=== PATIENT | female | born 1955 | race Hispanic/Latino ===

== ENCOUNTER 2019-01-05 08:22 | Day surgery (SDC) | payer MEDICARE ==
[2019-01-05] MEDS ORDERED: ceFAZolin 2 GM in NACL 0.9% 100 ML IV ONE (10:11)
[2019-01-05] MEDS ORDERED: ANCEF/STERILE WATER 2 GM/20 ML 2 GM/20 ML SYRINGE IV SCH (11:00)
--- NOTE | 2019-01-05 11:00 | Anesthesia Consultation ---
Anesthesia Consult and Med Hx Date of service: 01/05/19 - Airway Anesthetic Teeth Evaluation: Dentures ROM Head & Neck: Adequate Mental/Hyoid Distance: Adequate Mallampati Class: Class II Intubation Access Assessment: Good - Pulmonary Exam CTA: Yes - Cardiac Exam Cardiac Exam: RRR - Pre-Operative Health Status ASA Pre-Surgery Classification: ASA4 Proposed Anesthetic Plan: General - Pulmonary Hx Smoking: Yes (Quit 2 weeks ago) COPD: No (no formal dx but likely COPD 45 year hx of smoking) - Cardiovascular System Hx Hypertension: Yes - Central Nervous System Hx Back Pain: Yes Hx Psychiatric Problems: Yes - Endocrine Hx Non-Insulin Dependent Diabetes: Yes (took metformon this am) - Hematic Hx Anemia: Yes (Past hx) - Other Systems Hx Cancer: No Hx Obesity: Yes
--- NOTE | 2019-01-05 11:01 | Anesthesia Day of Surgery ---
Anesthesia Day of Surgery - Day of Surgery Patient Examined: Yes Patient H&P Reviewed: Yes Patient is NPO: Yes
[2019-01-05] MEDS ORDERED: PROVENTIL IH NR (11:15)
[2019-01-05] MEDS ORDERED: LACTATED RINGERS 1,000 ML IV SCH (12:00)
[2019-01-05] MEDS ORDERED: SUBLIMAZE ONE (12:05)
[2019-01-05] MEDS ORDERED: DIPRIVAN 10 MG/ML IV ONE (12:06)
[2019-01-05] MEDS ORDERED: XYLOCAINE MPF 2% ONE (13:12)
[2019-01-05] MEDS ORDERED: ZOFRAN ONE (13:12)
[2019-01-05] MEDS ORDERED: PHENYLEPHRINE/NS Syringe 1,000 MCG/10 ML IV ONE (13:12)
--- NOTE | 2019-01-05 13:51 | Operative Report ---
PREOPERATIVE DIAGNOSIS: Large left renal stone. POSTOPERATIVE DIAGNOSES: Large left renal stone. PROCEDURE: Left lithotripsy. SURGEON: Dr. Ramirez. ANESTHESIA: General. FINDINGS: This is a woman with a large left renal stone about 2 cm. There is a stent in place. She now presents for lithotripsy. DESCRIPTION OF PROCEDURE: The patient was brought to lithotripsy room and placed on the table. Stone was localized with AP and oblique image. It was quite dense on the initial film and during the procedure, density significantly diminished. We had a renal pause. We started at 1 kV, increased to a maximum of 8 kV. 2500 shocks were given. The patient tolerated the procedure well and brought to recovery in stable condition. JOB# [id number] YESSY/CASTILLO
--- NOTE | 2019-01-05 14:23 | Post Operative Note ---
Date of procedure: 01/05/19 Pre-op diagnosis: renal stone Post-op diagnosis: same Findings: same Procedure: ESWL Anesthesia: GETAna Surgeon: VIOLET MIGUEL Estimated blood loss: none Pathology: none Condition: stable Disposition: PACU
--- NOTE | 2019-01-05 14:25 | Discharge Summary ---
Short Stay Discharge Plan Activity: other (no straining ) Diet: low fat, low cholesterol, low salt Special Instructions: other (inc fluids ) Durable Medical Equipment Needed Upon Discharge: other (j stent ) Follow up with: ANGEL DAVIS DO [Primary Care Provider] - 7 Days JACEY SOSA MD [Staff Physician] - 7 Days
[2019-01-06 01:56] VITALS: BP 130/79
--- NOTE | 2019-01-06 10:08 | Post Anesthesia Evaluation ---
- Post Anesthesia Evaluation Patient Participated: Yes Airway Patent: Yes Stable Respiratory Function: Yes Nausea/Vomiting: No Temp > 96.8F: Yes Pain Manageable: Yes Adequeate Hydration: Yes Anesthesia Complications: No Block Receding Appropriately: Not Applicable Patient on Ventilator: No
== END 2019-01-05 15:40 | disposition home or self-care (01) ==
LOC: OR 08:22
PROVIDERS: ATTEND Urology
DX: N20.1 Calculus of ureter (principal); E11.42 Type 2 diabetes mellitus with diabetic polyneuropathy; I10 Essential (primary) hypertension; E66.9 Obesity, unspecified; F32.9 Major depressive disorder, single episode, unspecified; F41.9 Anxiety disorder, unspecified; D64.9 Anemia, unspecified; Z79.899 Other long term (current) drug therapy; Z79.84 Long term (current) use of oral hypoglycemic drugs; Z87.891 Personal history of nicotine dependence; Z98.41 Cataract extraction status, right eye; Z98.42 Cataract extraction status, left eye; Z68.39 Body mass index [BMI] 39.0-39.9, adult; Z90.710 Acquired absence of both cervix and uterus; Z96.612 Presence of left artificial shoulder joint
CPT/HCPCS: 50590; 82962; J0690; J2370; J2405; J2704; J3010; J7120

== ENCOUNTER 2019-02-20 05:57 | Day surgery (SDC) | payer MEDICARE ==
[2019-02-20] MEDS ORDERED: NACL 0.9% 500 ML 500 ML IV SCH (07:00)
[2019-02-20 07:18] LABS: Eosinophils # (Auto) 0.2 K/mm3 (0.0-0.4); Eosinophils % (Auto) 5.6 % (0.0-4.3); Hematocrit 41.6 % (30.3-42.9); Hemoglobin 14.4 gm/dl (10.1-14.3); Lymphocytes # (Auto) 1.1 K/mm3 (1.2-5.4); Lymphocytes % (Auto) 24.9 % (13.4-35.0); Mean Corpuscular HGB Conc 35 % (30-34); Mean Corpuscular Volume 97 fl (79-97); Monocytes # (Auto) 0.5 K/mm3 (0.0-0.8); Monocytes % (Auto) 11.7 % (0.0-7.3); Platelet Count 101 K/mm3 (140-440); Red Blood Count 4.31 M/mm3 (3.65-5.03)
[2019-02-20 07:19] VITALS: BP 108/55
[2019-02-20 07:31] LABS: BUN/Creatinine Ratio 18; Blood Urea Nitrogen 14 mg/dL (7-17); Calcium 9.7 mg/dL (8.4-10.2); Hemolysis Index 65
[2019-02-20 07:32] LABS: INR 1.02 (0.87-1.13)
[2019-02-20 07:33] LABS: Partial Thromboplastin Time 30.2 Sec. (24.2-36.6)
--- NOTE | 2019-02-20 08:23 | Cat Scan Report ---
CT ABDOMEN AND PELVIS WITHOUT CONTRAST HISTORY: renal stones, for PCNL, do once at [facility] COMPARISON: None. TECHNIQUE: Axial CT images were obtained through the abdomen and pelvis without IV contrast. Sagittal and coronal reformatted images. All CT scans at this location are performed using CT dose reduction for ALARA by means of automated exposure control. FINDINGS: CT ABDOMEN: Lung Bases: Clear. Liver: The liver is cirrhotic with surface nodularity and hypertrophy of the left hepatic lobe. No ob vious liver mass on noncontrast CT. Biliary: A few tiny calcified gallstones are noted in the gallbladder fundus. No biliary dilatation o r inflammation. Spleen: Moderate splenomegaly measures 15-16 cm in length. Pancreas: No significant abnormality. Adrenals: There are bilateral small hypodense adrenal lesions consistent with adrenal adenomas. Kidneys: A left ureteral stent spans from the left renal pelvis to the bladder. Approximately 6 or 7 left renal stones are identified. The largest stones at the inferior pole of the left kidney measurin g up to 1.5 cm in greatest dimension. An approximate 6 mm proximal left ureteral stone is identified along the stent at the level of L4. The left kidney and collecting system are unremarkable. No eviden ce for renal cystic disease or obvious mass. No hydronephrosis. Lymphatics: No lymphadenopathy. Vasculature: Moderate diffuse aortic and iliac calcifications. No aneurysm. Bowel/Peritoneum: No significant abnormality. No free air. No free fluid. Normal appendix. CT PELVIS: : Hysterectomy changes are suspected. No adnexal cyst or mass. The bladder is unremarkable. Osseous Structures: Mild osteopenia with multilevel thoracolumbar spondylosis. No fracture or suspici ous bony lesion. Chronic healed trauma to the left pubic bone is suspected. Additional Findings: Small umbilical hernia containing fat measuring less than 1.5 cm IMPRESSION: Left nephrolithiasis as described above. Cirrhosis of the liver and moderate splenomegaly. No ascites or large varices identified. Bilateral adrenal adenomas. Tiny gallstones. Small umbilical hernia containing fat. Osteopenia and degenerative changes. Signer Name: Angel Shepard Jr, MD Signed: 02/20/2019 8:19 AM Workstation Name: [id number]
[2019-02-20] MEDS ORDERED: VERSED ONE (08:25)
[2019-02-20] MEDS ORDERED: SUBLIMAZE ONE (08:26)
[2019-02-20] MEDS ORDERED: NACL 0.9% 0 ML IR ONE (08:26)
[2019-02-20] MEDS ORDERED: XYLOCAINE 1%/ EPI 1:100,000 INFILTRATI ONE (08:27)
[2019-02-20] MEDS ORDERED: LEVAQUIN 500MG/100ML 500 MG/100 ML BAG IV NR (09:00)
--- NOTE | 2019-02-20 09:19 | Short Stay Summary ---
Short Stay Documentation Date of service: 02/20/19 Narrative H&P: 63 year old female with left renal calculi with indwelling JJ stent/ureteral stent who presents for PCN for PCNL. Patient had incidental thrombocytopenia and CT scan showed renal calculi and cirrhosis with splenomegaly. Discussed with patient who has never had GI workup or even knew she had liver disease. Discussed with urologist who requested we cancel the case for now until patient has full GI workup. - History Principal diagnosis: renal calculi and cirrhosis Past Medical History: diabetes, liver disease, other (renal stones) Past Surgical History: Other (renal lithotripsy and JJ stent) Social history: no significant social history - Allergies and Medications Current Medications: Allergies No Known Allergies Allergy (Unverified 01/04/19 17:29) Home Medications Medication Instructions Recorded Confirmed Last Taken Type Lisinopril [Zestril TAB] 20 mg PO DAILY 01/05/19 02/20/19 02/20/19 05:00 History 20 mg Gabapentin [Neurontin] 300 mg PO TID 02/20/19 02/20/19 02/20/19 05:00 History 300 mg Haloperidol [Haldol] 2 mg PO HS 02/20/19 02/20/19 02/19/19 History 2 mg Metformin HCl [metFORMIN] 1,000 mg PO DAILY 02/20/19 02/20/19 02/18/19 History 1000 mg Metoprolol [Lopressor TAB] 200 mg PO BID 02/20/19 02/20/19 02/20/19 05:00 History 200 mg Venlafaxine HCl [Venlafaxine HCl 150 mg PO DAILY 02/20/19 02/20/19 02/20/19 05:00 History ER] 150 mg traZODone [Desyrel] 100 mg PO DAILY 02/20/19 02/20/19 02/19/19 History 100 mg Active Medications Sodium Chloride (Nacl 0.9% 500 Ml) 500 mls @ 50 mls/hr IV DIRECT KIMBERLEY Last Admin: 02/20/19 08:04 Dose: 50 mls/hr Documented by: Levofloxacin/Dextrose (Levaquin 500mg/100ml) 500 mg in 100 mls @ 100 mls/hr IV PREOP NR; Protocol Stop: 02/20/19 09:59 Last Admin: 02/20/19 08:29 Dose: 100 mls/hr Documented by: - Physical exam General appearance: no acute distress, obese Lungs: Normal air movement Heart: Regular rate - Hospital course Hospital course: Once CT findings reviewed, patient's procedure was cancelled after discussion with urologist. - Disposition Condition at discharge: Stable Disposition: [id number] HOME UNDER HOME HLTH - Discharge Diagnoses (1) Renal calculi Status: Chronic (2) Cirrhosis of liver Status: Chronic Short Stay Discharge Plan Activity: advance as tolerated Weight Bearing Status: Weight Bear as Tolerated Diet: diabetic Special Instructions: other (followup with Dr. Martinez of urology and followup with [facility] ([facility])) Follow up with: ANGEL DAVIS DO [Primary Care Provider] - 7 Days
== END 2019-02-20 10:50 | disposition home health service (06) ==
LOC: CATHLABREC 05:57
PROVIDERS: ATTEND Radiology Diagnostic Radiology
DX: N20.0 Calculus of kidney (principal); R16.1 Splenomegaly, not elsewhere classified; M85.88 Other specified disorders of bone density and structure, other site; M47.895 Other spondylosis, thoracolumbar region; I70.0 Atherosclerosis of aorta; K42.9 Umbilical hernia without obstruction or gangrene; K74.60 Unspecified cirrhosis of liver; K80.20 Calculus of gallbladder without cholecystitis without obstruction; G62.9 Polyneuropathy, unspecified; I10 Essential (primary) hypertension; J44.9 Chronic obstructive pulmonary disease, unspecified; E66.9 Obesity, unspecified; M19.90 Unspecified osteoarthritis, unspecified site; E11.42 Type 2 diabetes mellitus with diabetic polyneuropathy; F32.9 Major depressive disorder, single episode, unspecified; F41.9 Anxiety disorder, unspecified; Z53.8 Procedure and treatment not carried out for other reasons; Z90.710 Acquired absence of both cervix and uterus; Z79.899 Other long term (current) drug therapy; Z79.84 Long term (current) use of oral hypoglycemic drugs; Z98.41 Cataract extraction status, right eye; Z98.42 Cataract extraction status, left eye; Z68.41 Body mass index [BMI] 40.0-44.9, adult; Z98.890 Other specified postprocedural states; Z96.612 Presence of left artificial shoulder joint; Z86.2 Personal history of diseases of the blood and blood-forming organs and certain disorders involving the immune mechanism; Z82.49 Family history of ischemic heart disease and other diseases of the circulatory system
CPT/HCPCS: 36415; 74176; 80048; 85025; 85610; 85730; 96365; J1956; J7040; J2250; J3010

== ENCOUNTER 2019-04-17 06:19 | Inpatient (IN) | payer MEDICARE ==
[2019-04-17 07:45] LABS: Basophils % (Auto) 0.7 % (0.0-1.8); Eosinophils # (Auto) 0.2 K/mm3 (0.0-0.4); Eosinophils % (Auto) 5.9 % (0.0-4.3); Hematocrit 41.2 % (30.3-42.9); Hemoglobin 14.3 gm/dl (10.1-14.3); Lymphocytes # (Auto) 1.1 K/mm3 (1.2-5.4); Lymphocytes % (Auto) 27.8 % (13.4-35.0); Mean Corpuscular HGB Conc 35 % (30-34); Mean Corpuscular Volume 95 fl (79-97); Monocytes # (Auto) 0.5 K/mm3 (0.0-0.8); Monocytes % (Auto) 12.4 % (0.0-7.3); Platelet Count 101 K/mm3 (140-440); Red Blood Count 4.35 M/mm3 (3.65-5.03); Red Cell Distribution Width 13.7 % (13.2-15.2)
[2019-04-17 07:50] LABS: INR 1.04 (0.87-1.13)
[2019-04-17 07:51] LABS: Partial Thromboplastin Time 31.2 Sec. (24.2-36.6)
[2019-04-17 07:52] LABS: BUN/Creatinine Ratio 21; Blood Urea Nitrogen 19 mg/dL (7-17); Hemolysis Index 1
[2019-04-17] MEDS: SODIUM CHLORIDE 0.9% 500 ML 500 ML IV SCH ×2 (08:29→17:58)
--- NOTE | 2019-04-17 08:54 | Cat Scan Report ---
CT ABDOMEN AND PELVIS WITHOUT CONTRAST HISTORY: Renal calculi COMPARISON: 02/20/2019 TECHNIQUE: Axial CT images were obtained through the abdomen and pelvis without IV contrast. Sagittal and coronal reformatted images. All CT scans at this location are performed using CT dose reduction for ALARA by means of automated exposure control. FINDINGS: CT ABDOMEN: Lung Bases: Clear. Liver: Moderate cirrhotic changes are noted in the liver. No obvious mass on noncontrast CT. Biliary: No significant abnormality. Spleen: Mild to moderate splenomegaly measuring 15 cm. Pancreas: No significant abnormality. Adrenals: 1 cm low-density left adrenal nodule probably represents an adenoma. The right adrenal glan d is within normal limits. Kidneys: Normal right kidney and collecting system. There are at least 4 calyceal stones in the infer ior left kidney measuring 7 mm, 11 mm, 4 mm and 12 mm superiorly to inferiorly. No associated hydrone phrosis. A left ureteral stent extends from the left renal pelvis to the bladder. No ureteral stones are appreciated. Lymphatics: No lymphadenopathy. Vasculature: Mild aortic and iliac calcifications. No aneurysm. Bowel/Peritoneum: No significant abnormality. No free air. No free fluid. Normal appendix. CT PELVIS: : Hysterectomy changes. The bladder and adnexa are unremarkable. Osseous Structures: Osteopenia and lumbar spondylosis. Chronic left pubic bone fracture is suspected. Additional Findings: None IMPRESSION: Left nephrolithiasis as described above. Cirrhosis and splenomegaly. Hysterectomy. Left adrenal adenoma. Signer Name: Angel Shepard Jr, MD Signed: 04/17/2019 8:49 AM Workstation Name: [id number]
[2019-04-17] MEDS ORDERED: SODIUM CHLORIDE IRRI 500 ML 500 ML IR ONE (09:10)
[2019-04-17] MEDS ORDERED: SODIUM CHLORIDE 0.9% 250ML 0 ML ONE (09:11)
[2019-04-17] MEDS ORDERED: ceFAZolin/Water 2 GM/20 ML 2 GM/20 ML SYRINGE IV ONE (09:35)
[2019-04-17] MEDS: LIDOCAINE 1%/EPINEPHRINE 1:100,000 VIAL (20 ML) INFILTRATI ONE ×2 (09:48→10:18)
[2019-04-17] MEDS: MIDAZOLAM 2 MG/2 ML INJ ONE ×4 (09:48→10:17)
[2019-04-17] MEDS: fentaNYL 100 MCG/2 ML INJ ONE ×4 (09:48→10:17)
[2019-04-17] MEDS ORDERED: LIDOCAINE 1%/EPINEPHRINE 1:100,000 VIAL (20 ML) INFILTRATI ONE (10:07)
--- NOTE | 2019-04-17 10:35 | Short Stay Summary ---
Short Stay Documentation Date of service: 04/17/19 Narrative H&P: 63 year old female with cirrhosis who presents for PCNL. She needs left nephroureteral stone access and is presenting for nephroureteral tube placement and subsequently admission. - History Principal diagnosis: renal calculi Past Medical History: diabetes, liver disease, other (renal stones) Social history: - Allergies and Medications Current Medications: Allergies No Known Allergies Allergy (Unverified 01/04/19 17:29) Home Medications Medication Instructions Recorded Confirmed Last Taken Type Lisinopril [Zestril TAB] 20 mg PO DAILY 01/05/19 04/17/19 04/17/19 04:30 History 20 mg Gabapentin 300 mg PO TID 02/20/19 04/17/19 04/17/19 04:30 History 300 mg Haloperidol [Haldol] 2 mg PO HS 02/20/19 04/17/19 04/16/19 History 2 mg Metformin HCl [metFORMIN] 1,000 mg PO DAILY 02/20/19 04/17/19 04/16/19 History 1000 mg Metoprolol [Lopressor TAB] 200 mg PO BID 02/20/19 04/17/19 04/17/19 04:30 History 200 mg Venlafaxine HCl [Venlafaxine HCl 150 mg PO DAILY 02/20/19 04/17/19 04/17/19 04:30 History ER] 150 mg traZODone [Desyrel] 100 mg PO HS 02/20/19 04/17/19 04/16/19 History 100 mg cefUROXime [Ceftin] 500 mg PO BID 04/17/19 04/17/19 04/17/19 History 500 mg Active Medications Sodium Chloride (Nacl 0.9% 500 Ml) 500 mls @ 50 mls/hr IV DIRECT KIMBERLEY Last Admin: 04/17/19 08:29 Dose: 50 mls/hr Documented by: Sodium Chloride (Sodium Chloride Flush Syringe 10 Ml) 10 ml IV PRN PRN PRN Reason: LINE FLUSH - Physical exam General appearance: no acute distress, obese Lungs: Normal air movement Gastrointestinal: normal - Brief post op/procedure progress note Date of procedure: 04/17/19 Pre-op diagnosis: Renal calculi Post-op diagnosis: same Procedure: 1. Fluoroscopic guided access of the left lower pole posterioinferior calyx with stones 2. Fluoroscopic guided placement of a 6 Fr nephroureteral tube placement Anesthesia: local (w/ conscious sedation) Surgeon: JENNY HURST Estimated blood loss: minimal Condition: stable - Hospital course Hospital course: Will need to be admitted for procedure tomorrow. Discussed with hospitalist service. Will be admitted. - Discharge Diagnoses (1) Cirrhosis of liver Status: Chronic (2) Renal calculi Status: Chronic Short Stay Discharge Plan Follow up with: ANGEL DAVIS DO [Primary Care Provider] - 7 Days
--- NOTE | 2019-04-17 10:56 | Operative Report ---
Operative Report Operative Report: EXAM: 1. Fluoroscopic guided access of the lower posterioinferior calyx of the left kidney 2. Nephrostogram of the left kidney 3. Percutaneous 6 Fr left nephroureteral tube placement of the left kidney DATE: 04/17/19 CONFIGURATION ANALYST: JENNY HURST MD INDICATION: Left renal calculi requiring PCNL MEDICATIONS: Please see nursing report for full details. DEVICES: 6 [place] nephro-ureteral tube CONTRAST: 15 mL of nonionic contrast PROCEDURE: The risks, benefits, and alternatives were discussed with the patient; written informed consent was obtained. The patient's back was prepped and draped in a sterile fashion. The patient's puncture site was anesthetized with lidocaine. Under direct fluoroscopic guidance, the left lower pole posteroinferior calyx with calculi was accessed with a 21-gauge needle. 0.018 inch wire was passed into the collecting system. Needle was exchanged for a 6 [place] Accu stick system. 6 [place] Accustick system was advanced over the wire and passed into the collecting system. Wire, inner dilator and cannula were removed. Contrast was injected confirming position within the collecting system. Nephrostogram was performed demonstrating calculi within the collecting system predominately in the accessed calyx and the central portion of the collecting system without hydronephrosis. There was a double-J stent noted. No spontaneous flow of urine noted into the bladder, but there was flow through the stent. Wire and catheter were then negotiated through the 6 [place] accustick system and into the bladder. Chest was injected in the bladder documenting position in the bladder 0.035 inch Amplatz wire was advanced through the transitional dilator of the Acc uStick system and the dilator and catheter were removed. 6 [place] pigtail was positioned in the bladder over the wire traversing the collecting system. Contrast was injected into the nephrostomy tube confirming position within the bladder. The nephroureteral tube was sutured in place with Ethilon. Sterile dressing applied. Patient tolerated the procedure well. She was transferred to the floor in stable condition. FINDINGS: Please see procedure note above. IMPRESSION: 1. Successful nephrostogram of the left kidney demonstrating multiple large renal calculi without hydronephrosis with a double-J stent placement. 2. Percutaneous nephroureteral tube placement in the lower posterioinferior calyx of the left kidney.
--- NOTE | 2019-04-17 10:57 | Event Note ---
Date: 04/17/19 Patient will be admitted to the hospital. Discussed with hospitalist service. Dr. Maldonado will be performing PCNL tomorrow. Recommend Levaquin daily until procedure performed. Afterwards, recommend following urology recommendations. Recommend nothing by mouth after midnight except meds.
[2019-04-17] MEDS ORDERED: ALBUTEROL 2.5 MG/3 ML NEBU IH PRN (11:18)
--- NOTE | 2019-04-17 11:27 | History and Physical Report ---
History of Present Illness Date of examination: 04/17/19 Date of admission: 04/17/19 Chief complaint: Left flank pain History of present illness: Patient is 63 yo with hypertension, diabetes, cirrhosis, kidney stones. She had lithotripsy attempted few weeks ago but states still has some stones present. She presented to Dr. Sigala, had procedure done in OR today. She had percutanous nephroureteral tube placement left kidney and is being admitted for further management and further procedure (PCNL) to be done tomorrow by Dr. Maldonado, Urologist. Currently complains of pain left flank. No fever. Past History Past Medical History: diabetes, liver disease, other (renal stones) Past Surgical History: hysterectomy, hernia repair (umbilical), Other (rectal prolapse, left shoulder surgery) Social history: , lives with family, full code. denies: smoking, alcohol abuse Family history: diabetes, hypertension Medications and Allergies Allergies Allergy/AdvReac Type Severity Reaction Status Date / Time No Known Allergies Allergy Unverified 01/04/19 17:29 Home Medications Medication Instructions Recorded Confirmed Last Taken Type Lisinopril [Zestril TAB] 20 mg PO DAILY 01/05/19 04/17/19 04/17/19 04:30 History 20 mg Gabapentin 300 mg PO TID 02/20/19 04/17/19 04/17/19 04:30 History 300 mg Haloperidol [Haldol] 2 mg PO HS 02/20/19 04/17/19 04/16/19 History 2 mg Metformin HCl [metFORMIN] 1,000 mg PO DAILY 02/20/19 04/17/19 04/16/19 History 1000 mg Metoprolol [Lopressor TAB] 200 mg PO BID 02/20/19 04/17/19 04/17/19 04:30 His tory 200 mg Venlafaxine HCl [Venlafaxine HCl 150 mg PO DAILY 02/20/19 04/17/19 04/17/19 04:3 0 History ER] 150 mg traZODone [Desyrel] 100 mg PO HS 02/20/19 04/17/19 04/16/19 History 100 mg cefUROXime [Ceftin] 500 mg PO BID 04/17/19 04/17/19 04/17/19 History 500 mg Active Meds: Active Medications Acetaminophen (Tylenol) 650 mg PO Q4H PRN PRN Reason: Pain MILD(1-3)/Fever >100.5/RUDOLPH Albuterol (Proventil) 2.5 mg IH Q4HRT PRN PRN Reason: Shortness Of Breath Gabapentin (Gabapentin) 300 mg PO TID KIMBERLEY Haloperidol (Haldol) 2 mg PO HS KIMBERLEY Sodium Chloride (Nacl 0.9% 500 Ml) 500 mls @ 50 mls/hr IV DIRECT KIMBERLEY Last Admin: 04/17/19 08:29 Dose: 50 mls/hr Documented by: Lisinopril (Zestril) 20 mg PO DAILY KIMBERLEY Metoprolol Tartrate (Metoprolol) 200 mg PO BID KIMBERLEY Miscellaneous Medication (Venlafaxine Hcl [Venlafaxine Hcl Er]) 150 mg PO DAILY KIMBERLEY Morphine Sulfate (Morphine) 2 mg IV Q4H PRN PRN Reason: Pain, Moderate (4-6) Ondansetron HCl (Zofran) 4 mg IV Q8H PRN PRN Reason: Nausea And Vomiting Sodium Chloride (Sodium Chloride Flush Syringe 10 Ml) 10 ml IV BID KIMBERLEY Sodium Chloride (Sodium Chloride Flush Syringe 10 Ml) 10 ml IV PRN PRN PRN Reason: LINE FLUSH Trazodone HCl (Desyrel) 100 mg PO HS KIMBERLEY Review of Systems All systems: negative (No headache, no fever, no abd pain, no cough. All other systems reviewed and are negative) Exam - Physical Exam Narrative exam: Gen: Not in acute distress, lying in bed HEENT: Normocephalic, atraumatic Neck: supple, no JVD Heart: S1 and S2 reg, no murmurs, rubs or gallop Lungs: Clear to auscultation bilaterally, Abd: soft, non tender, non distended, normal BS, Nephrostomy tube left flank posteriorly, covered with dressing. Ext: No edema, no clubbing, no cyanosis Neuro: Awake, alert, oriented X 3, No focal neurological signs - Constitutional Vitals: Temp Pulse Resp BP Pulse Ox 97.8 F 76 15 125/72 93 04/17/19 10:48 04/17/19 11:15 04/17/19 11:15 04/17/19 11:00 04/17/19 11:15 Results - Labs CBC & Chem 7: 04/17/19 07:29 04/17/19 07:29 Labs: Abnormal lab results 04/17/19 04/17/19 Range/Units 07:29 07:29 WBC 4.0 L (4.5-11.0) K/mm3 MCH 33 H (28-32) pg MCHC 35 H (30-34) % Plt Count 101 L (140-440) K/mm3 [place] % (Auto) 12.4 H (0.0-7.3) % Eos % (Auto) 5.9 H (0.0-4.3) % Lymph # 1.1 L (1.2-5.4) K/mm3 Carbon Dioxide 21 L (22-30) mmol/L BUN 19 H (7-17) mg/dL Glucose 142 H (65-100) mg/dL Assessment and Plan Left renal stones s/pFluoroscopic guided access of the lower posterioinferior calyx of the left kidney, Nephrostogram of the left kidney, and percutaneous 6 Fr left nephroureteral tube placement of the left kidney by Dr. Sigala today 04/17/19 Check UA, Urinalysis Discussed with Dr. Sigala and he recommends starting Levaquin iv Hypertension Resume home meds Diabetes mellitus type 2 Fingerstick qac and hs hold metformin History of cirrhosis Obesity I counseled her on diet and exercise Full code status
[2019-04-17] MEDS ORDERED: NON-FORMULARY EACH (Venlafaxine Hcl [Venlafaxine Hcl Er] 150 MG) PO SCH (11:30)
[2019-04-17] MEDS ORDERED: ONDANSETRON 4 MG/2 ML INJ IV PRN (11:30)
[2019-04-17] MEDS ORDERED: ACETAMINOPHEN 325 MG TAB PO PRN (11:30)
[2019-04-17] MEDS ORDERED: METOPROLOL TARTRATE 100 MG TAB PO SCH (12:00)
[2019-04-17] MEDS: oxyCODONE 5 MG TAB PO PRN (12:21)
[2019-04-17] MEDS ORDERED: oxyCODONE 5 MG TAB ONE (13:17)
[2019-04-17] MEDS: MORPHINE 2 MG/1 ML INJ IV PRN ×3 (13:39→22:48)
[2019-04-17] MEDS: GABAPENTIN 300 MG CAP PO SCH ×2 (13:43→21:29)
[2019-04-17] MEDS ORDERED: VENLAFAXINE 75 MG TAB PO SCH (14:00)
[2019-04-17 14:41] LABS: INR 1.08 (0.87-1.13)
[2019-04-17] MEDS: GENTAMICIN/NS 100 MG/100 ML 100 MG/100 ML BAG IV SCH ×2 (15:29→22:36)
[2019-04-17 19:53] LABS: Bacteria,Urine 3+ /HPF (Negative); Bilirubin,Urine NEG (Negative); Blood,Urine LG (Negative); Color,Urine Yellow (Yellow); Urobilinogen,Urine < 2.0 mg/dL (<2.0)
[2019-04-17 19:54] LABS: WBC,Urine > 182.0 /HPF (0.0-6.0)
[2019-04-17] MEDS: traZODone 100 MG TAB PO SCH (22:29)
[2019-04-17] MEDS: HALOPERIDOL 2 MG TAB PO SCH (22:36)
[2019-04-17] MEDS: METOPROLOL TARTRATE 100 MG TAB PO SCH (23:51)
[2019-04-18] MEDS: MORPHINE 2 MG/1 ML INJ IV PRN ×4 (03:00→17:35)
[2019-04-18] MEDS: oxyCODONE 5 MG TAB PO PRN ×2 (05:42→22:26)
[2019-04-18] MEDS ORDERED: D5W/0.9% NACL 1,000 ML IV SCH (06:00)
[2019-04-18] MEDS: GENTAMICIN/NS 100 MG/100 ML 100 MG/100 ML BAG IV SCH ×3 (06:01→22:36)
[2019-04-18] MEDS: GABAPENTIN 300 MG CAP PO SCH ×3 (12:35→22:27)
[2019-04-18] MEDS: LISINOPRIL 20 MG TAB PO SCH (12:35)
[2019-04-18] MEDS: VENLAFAXINE 75 MG TAB PO SCH (12:36)
[2019-04-18] MEDS: METOPROLOL TARTRATE 100 MG TAB PO SCH ×2 (12:37→22:27)
[2019-04-18] MEDS ORDERED: HYDROmorphone 1 MG/1 ML INJ IV PRN (14:28)
[2019-04-18] MEDS ORDERED: ONDANSETRON 4 MG/2 ML INJ IV PRN (14:28)
--- NOTE | 2019-04-18 14:30 | Anesthesia Day of Surgery ---
Anesthesia Day of Surgery - Day of Surgery Patient Examined: Yes Patient H&P Reviewed: Yes Patient is NPO: Yes
--- NOTE | 2019-04-18 14:34 | Anesthesia Consultation ---
Anesthesia Consult and Med Hx Date of service: 04/18/19 - Airway Anesthetic Teeth Evaluation: Dentures, Edentulous (Upper) ROM Head & Neck: Adequate Mental/Hyoid Distance: Adequate Mallampati Class: Class II Intubation Access Assessment: Probably Good - Pre-Operative Health Status ASA Pre-Surgery Classification: ASA3 Proposed Anesthetic Plan: General - Pulmonary Hx Smoking: Yes (Quit. States she can climb two flights of stairs) COPD: No (no formal dx but likely COPD 45 year hx of smoking) - Cardiovascular System Hx Hypertension: Yes - Central Nervous System Hx Back Pain: Yes Hx Psychiatric Problems: Yes - Endocrine Hx Renal Disease: Yes (Stones) Hx Cirrhosis: Yes Hx Non-Insulin Dependent Diabetes: Yes - Hematic Hx Anemia: Yes (THROMBOCYTOPENIA. Anemia in the past) - Other Systems Hx Cancer: No Hx Obesity: Yes
--- NOTE | 2019-04-18 14:56 | XRay Report ---
ABDOMEN SUPINE INDICATION / CLINICAL INFORMATION: stone / surgery pre op. COMPARISON: Abdominal CT done yesterday FINDINGS: Left ureteral stents in position. Multiple left renal calculi are again demonstrated. Signer Name: Jez Campa MD Signed: 04/18/2019 2:52 PM Workstation Name: [id number]
[2019-04-18 15:01] LABS: Basophils % (Auto) 0.3 % (0.0-1.8); Eosinophils # (Auto) 0.2 K/mm3 (0.0-0.4); Eosinophils % (Auto) 3.9 % (0.0-4.3); Hematocrit 42.7 % (30.3-42.9); Hemoglobin 14.6 gm/dl (10.1-14.3); Lymphocytes % (Auto) 17.2 % (13.4-35.0); Mean Corpuscular HGB Conc 34 % (30-34); Mean Corpuscular Volume 96 fl (79-97); Monocytes # (Auto) 0.9 K/mm3 (0.0-0.8); Monocytes % (Auto) 14.7 % (0.0-7.3); Red Blood Count 4.47 M/mm3 (3.65-5.03); Red Cell Distribution Width 13.9 % (13.2-15.2)
[2019-04-18] MEDS: LACTATED RINGERS 1,000 ML IV SCH (15:03)
[2019-04-18 18:06] LABS: Platelet Count 78 K/mm3 (140-440)
--- NOTE | 2019-04-18 21:21 | Progress Note ---
Assessment and Plan - Left renal stone guided s/p Fluoroscopic inspection of left nephrostomy tube - 04/17/19 - UTI Follow urine culture Continue with Levaquin - Hypertension Resume home meds - Diabetes mellitus type 2 sliding scale insulin Fingerstick qac and hs Consistent, carbohydrates diet when patient, his oral intake - History of cirrhosis Stable Obesity counseled her on diet and exercise Full code status -DVT prophylaxis with Lovenox Subjective Date of service: 04/18/19 Principal diagnosis: left renal calculi Interval history: Postop pain improved. No fever. Objective - Exam Narrative Exam: Constitutional: Well-nourished well-developed. In no distress Head: Normocephalic atraumatic Eyes: Pupils are equal round and reactive to light Nose: No enlarged turbinates, no septal deviation. Mouth: Moist mucous membranes. Neck: Supple no thyromegaly. No bruit. No JVD Heart: Regular rate and rhythm, S1-S2 normal. No rubs murmurs or gallop Lungs: Clear to auscultation bilaterally. no rales or rhonchi Abdomen: Soft, nontender. Bowel sound are present. Extremities: No edema, no cyanosis, no clubbing. Neuro: Alert oriented Oriented x3. No focal sensory or motor deficit. Skin: No rashes or hyperpigmented spots Musculoskeletal system: No joint pain or swelling Hematological: No petechia or subcutanous hemorrhages. Immunological: No multiple septic spots on the skin Lymphatic: No generalized lymphadenopathy Psychiatry: Euthymic. Calm. - Constitutional Vitals: Vital Signs - 12hr 04/18/19 04/18/19 04/18/19 11:29 17:27 19:18 Temperature 98.1 F 99.6 F 99.0 F Pulse Rate 75 87 87 Respiratory 20 20 17 Rate Blood Pressure 98/46 127/69 129/55 O2 Sat by Pulse 93 87 90 Oximetry - Labs CBC & Chem 7: 04/18/19 14:45 04/17/19 07:29 Labs: Abnormal lab results 04/18/19 04/18/19 04/18/19 Range/Units 07:27 11:41 14:45 Hgb 14.6 H (10.1-14.3) gm/dl MCH 33 H (28-32) pg Plt Count 78 L (140-440) K/mm3 [place] % (Auto) 14.7 H (0.0-7.3) % Lymph # 1.0 L (1.2-5.4) K/mm3 [place] # 0.9 H (0.0-0.8) K/mm3 POC Glucose 153 H 126 H (70-105) 04/18/19 04/18/19 Range/Units 17:38 19:26 Hgb (10.1-14.3) gm/dl MCH (28-32) pg Plt Count (140-440) K/mm3 [place] % (Auto) (0.0-7.3) % Lymph # (1.2-5.4) K/mm3 [place] # (0.0-0.8) K/mm3 POC Glucose 133 H 132 H (70-105)
[2019-04-18] MEDS ORDERED: HEPARIN 5,000 UNIT/1 ML VIAL SUB-Q SCH (22:00)
[2019-04-18] MEDS: HALOPERIDOL 2 MG TAB PO SCH (22:26)
[2019-04-18] MEDS: traZODone 100 MG TAB PO SCH (22:27)
[2019-04-19 04:49] LABS: Basophils % (Auto) 0.4 % (0.0-1.8); Eosinophils # (Auto) 0.2 K/mm3 (0.0-0.4); Eosinophils % (Auto) 3.3 % (0.0-4.3); Hemoglobin 13.1 gm/dl (10.1-14.3); Lymphocytes # (Auto) 0.8 K/mm3 (1.2-5.4); Lymphocytes % (Auto) 16.6 % (13.4-35.0); Mean Corpuscular HGB Conc 35 % (30-34); Mean Corpuscular Volume 96 fl (79-97); Monocytes # (Auto) 0.6 K/mm3 (0.0-0.8); Monocytes % (Auto) 12.5 % (0.0-7.3); Red Blood Count 3.98 M/mm3 (3.65-5.03); Red Cell Distribution Width 13.6 % (13.2-15.2)
[2019-04-19 04:51] LABS: Platelet Count 88 K/mm3 (140-440)
[2019-04-19] MEDS: MORPHINE 2 MG/1 ML INJ IV PRN ×2 (05:07→20:26)
[2019-04-19 05:11] LABS: Alanine Aminotransferase 9 units/L (7-56); Albumin 3.6 g/dL (3.9-5); BUN/Creatinine Ratio 15; Blood Urea Nitrogen 12 mg/dL (7-17); Calcium 8.8 mg/dL (8.4-10.2); Hemolysis Index 3
[2019-04-19] MEDS: GENTAMICIN/NS 100 MG/100 ML 100 MG/100 ML BAG IV SCH (05:36)
[2019-04-19] MEDS: GABAPENTIN 300 MG CAP PO SCH ×3 (08:00→22:08)
[2019-04-19] MEDS: LISINOPRIL 20 MG TAB PO SCH (10:00)
[2019-04-19] MEDS: VENLAFAXINE 75 MG TAB PO SCH (10:00)
[2019-04-19] MEDS: METOPROLOL TARTRATE 100 MG TAB PO SCH ×2 (10:00→22:07)
--- NOTE | 2019-04-19 12:14 | Progress Note ---
Assessment and Plan Assessment and plan: Left renal stones s/pFluoroscopic guided access of the lower posterioinferior calyx of the left kidney, Nephrostogram of the left kidney, and percutaneous 6 Fr left nephroureteral tube placement of the left kidney by Dr. Sigala 04/17/[address] Sigala and he recommended starting Levaquin iv For Urology procedure today UTI On Levaquin. Gentamicin added by urology Hypertension Resumed home meds Diabetes mellitus type 2 Fingerstick qac and hs hold metformin History of cirrhosis Obesity I counseled her on diet and exercise Full code status History Interval history: less pain left flank Hospitalist Physical - Physical exam Narrative exam: Gen: Not in acute distress, lying in bed HEENT: Normocephalic, atraumatic Neck: supple, no JVD Heart: S1 and S2 reg, no murmurs, rubs or gallop Lungs: Clear to auscultation bilaterally, Abd: soft, non tender, non distended, normal BS, Nephrostomy tube left flank posteriorly, covered with dressing. Ext: No edema, no clubbing, no cyanosis Neuro: Awake, alert, oriented X 3, No focal neurological signs - Constitutional Vitals: Temp Pulse Resp BP Pulse Ox 98.3 F 80 20 99/51 93 04/19/19 07:36 04/19/19 07:36 04/19/19 07:36 04/19/19 07:36 04/19/19 07:36 General appearance: Present: no acute distress, obese Results - Labs CBC & Chem 7: 04/19/19 04:12 04/19/19 04:12 Labs: Laboratory Last Values WBC 5.0 K/mm3 (4.5-11.0) 04/19/19 04:12 RBC 3.98 M/mm3 (3.65-5.03) 04/19/19 04:12 Hgb 13.1 gm/dl (10.1-14.3) 04/19/19 04:12 Hct 38.0 % (30.3-42.9) 04/19/19 04:12 MCV 96 fl (79-97) 04/19/19 04:12 MCH 33 pg (28-32) H 04/19/19 04:12 MCHC 35 % (30-34) H 04/19/19 04:12 RDW 13.6 % (13.2-15.2) 04/19/19 04:12 Plt Count 88 K/mm3 (140-440) L 04/19/19 04:12 Lymph % (Auto) 16.6 % (13.4-35.0) 04/19/19 04:12 [place] % (Auto) 12.5 % (0.0-7.3) H 04/19/19 04:12 Eos % (Auto) 3.3 % (0.0-4.3) 04/19/19 04:12 Baso % (Auto) 0.4 % (0.0-1.8) 04/19/19 04:12 Lymph # 0.8 K/mm3 (1.2-5.4) L 04/19/19 04:12 [place] # 0.6 K/mm3 (0.0-0.8) 04/19/19 04:12 Eos # 0.2 K/mm3 (0.0-0.4) 04/19/19 04:12 Baso # 0.0 K/mm3 (0.0-0.1) 04/19/19 04:12 Seg Neutrophils % 67.2 % (40.0-70.0) 04/19/19 04:12 Seg Neutrophils # 3.4 K/mm3 (1.8-7.7) 04/19/19 04:12 PT 13.9 Sec. (12.2-14.9) 04/17/19 14:02 INR 1.08 (0.87-1.13) 04/17/19 14:02 APTT 35.1 Sec. (24.2-36.6) 04/19/19 04:12 Sodium 135 mmol/L (137-145) L 04/19/19 04:12 Potassium 4.0 mmol/L (3.6-5.0) 04/19/19 04:12 Chloride 99.7 mmol/L (98-107) 04/19/19 04:12 Carbon Dioxide 25 mmol/L (22-30) 04/19/19 04:12 Anion Gap 14 mmol/L 04/19/19 04:12 BUN 12 mg/dL (7-17) 04/19/19 04:12 Creatinine 0.8 mg/dL (0.7-1.2) 04/19/19 04:12 Estimated GFR > 60 ml/min 04/19/19 04:12 BUN/Creatinine Ratio 15 % 04/19/19 04:12 Glucose 171 mg/dL (65-100) H 04/19/19 04:12 POC Glucose 116 (70-105) H 04/19/19 11:29 Calcium 8.8 mg/dL (8.4-10.2) 04/19/19 04:12 Total Bilirubin 1.00 mg/dL (0.1-1.2) 04/19/19 04:12 AST 29 units/L (5-40) 04/19/19 04:12 ALT 9 units/L (7-56) 04/19/19 04:12 Alkaline Phosphatase 79 units/L (35-129) 04/19/19 04:12 Total Protein 6.8 g/dL (6.3-8.2) 04/19/19 04:12 Albumin 3.6 g/dL (3.9-5) L 04/19/19 04:12 Albumin/Globulin Ratio 1.1 % 04/19/19 04:12 Urine Color Yellow (Yellow) 04/17/19 19:39 Urine Turbidity Cloudy (Clear) 04/17/19 19:39 Urine pH 6.0 (5.0-7.0) 04/17/19 19:39 Ur Specific [place] 1.004 (1.003-1.030) 04/17/19 19:39 Urine Protein 100 mg/dl mg/dL (Negative) 04/17/19 19:39 Urine Glucose (UA) Neg mg/dL (Negative) 04/17/19 19:39 Urine Ketones Neg mg/dL (Negative) 04/17/19 19:39 Urine Blood Lg (Negative) 04/17/19 19:39 Urine Nitrite Neg (Negative) 04/17/19 19:39 Urine Bilirubin Neg (Negative) 04/17/19 19:39 Urine Urobilinogen < 2.0 mg/dL (<2.0) 04/17/19 19:39 Ur Leukocyte Esterase Lg (Negative) 04/17/19 19:39 Urine WBC (Auto) > 182.0 /HPF (0.0-6.0) H 04/17/19 19:39 Urine RBC (Auto) 59.0 /HPF (0.0-6.0) 04/17/19 19:39 U Epithel Cells (Auto) < 1.0 /HPF (0-13.0) 04/17/19 19:39 Urine Bacteria (Auto) 3+ /HPF (Negative) 04/17/19 19:39 Blood Type O POSITIVE 04/17/19 14:02 Antibody Screen Negative 04/17/19 14:02 Active Medications - Current Medications Current Medications: Generic Name Dose Route Start Last Admin Trade Name Freq PRN Reason Stop Dose Admin Acetaminophen 650 mg 04/17/19 11:30 Tylenol PO Q4H PRN Pain MILD(1-3)/Fever >100.5/RUDOLPH Albuterol 2.5 mg 04/17/19 11:18 Proventil IH Q4HRT PRN Shortness Of Breath Gabapentin 300 mg 04/17/19 14:00 04/18/19 22:27 Gabapentin PO 300 mg TID KIMBERLEY Administration Haloperidol 2 mg 04/17/19 22:00 04/18/19 22:26 Haldol PO 2 mg HS KIMBERLEY Administration Heparin Sodium (Porcine) 5,000 unit 04/18/19 22:00 04/18/19 22:31 Heparin SUB-Q Not Given Q12HR KIMBERLEY Levofloxacin/Dextrose 750 mg in 150 mls @ 100 mls/hr 04/17/19 14:00 04/18/19 10:28 Levaquin 750mg/150ml IV 04/21/19 11:29 100 mls/hr Q24HR KIMBERLEY Administration Protocol Dextrose/Sodium Chloride 1,000 mls @ 42 mls/hr 04/18/19 06:00 04/18/19 12:10 D5ns IV 42 mls/hr DIRECT KIMBERLEY Administration Lactated Ringer's 1,000 mls @ 100 mls/hr 04/18/19 15:00 04/18/19 15:03 Lactated Ringers IV 100 mls/hr DIRECT KIMBERLEY Administration Gentamicin Sulfate 300 mg/ 107.5 mls @ 200 mls/hr 04/20/19 06:00 Sodium Chloride IV 04/23/19 07:59 Q24H KIMBERLEY Lisinopril 20 mg 04/18/19 10:00 04/18/19 12:35 Zestril PO Not Given DAILY KIMBERLEY Metoprolol Tartrate 200 mg 04/17/19 22:00 04/18/19 22:27 Metoprolol PO 200 mg BID KIMBERLEY Administration Morphine Sulfate 2 mg 04/17/19 11:30 04/19/19 05:07 Morphine IV 2 mg Q4H PRN Administration Pain, Moderate (4-6) Ondansetron HCl 4 mg 04/17/19 11:30 04/17/19 22:50 Zofran IV 4 mg Q8H PRN Administration Nausea And Vomiting Ondansetron HCl 4 mg 04/18/19 14:28 Zofran IV ONCE PRN Nausea And Vomiting Oxycodone HCl 5 mg 04/17/19 12:05 04/18/19 22:26 Roxicodone PO 5 mg Q6H PRN Administration Pain, Moderate (4-6) Sodium Chloride 10 ml 04/17/19 22:00 04/18/19 22:42 Sodium Chloride Flush Syringe 10 Ml IV 10 ml BID KIMBERLEY Administration Sodium Chloride 10 ml 04/17/19 11:30 04/18/19 08:29 Sodium Chloride Flush Syringe 10 Ml IV 10 ml PRN PRN Administration LINE FLUSH Trazodone HCl 100 mg 04/17/19 22:00 04/18/19 22:27 Desyrel PO 100 mg HS KIMBERLEY Administration Venlafaxine HCl 150 mg 04/18/19 10:00 04/18/19 12:36 Effexor PO Not Given DAILY KIMBERLEY
--- NOTE | 2019-04-19 13:44 | Anesthesia Day of Surgery ---
Anesthesia Day of Surgery - Day of Surgery Patient Examined: Yes Patient H&P Reviewed: Yes Patient is NPO: Yes
[2019-04-19] MEDS ORDERED: fentaNYL 100 MCG/2 ML INJ IV PRN (13:45)
[2019-04-19] MEDS ORDERED: LACTATED RINGERS 1,000 ML ONE ×2 (13:59→16:11)
[2019-04-19] MEDS ORDERED: MIDAZOLAM 2 MG/2 ML INJ IV NR (14:00)
[2019-04-19] MEDS: LACTATED RINGERS 1,000 ML IV SCH ×2 (14:00→20:16)
[2019-04-19] MEDS ORDERED: fentaNYL 100 MCG/2 ML INJ ONE (14:17)
[2019-04-19] MEDS ORDERED: MIDAZOLAM 2 MG/2 ML INJ ONE (14:17)
[2019-04-19] MEDS ORDERED: LIDOCAINE MPF (2%) 20 MG/1 ML VIAL 5 ML ONE (14:17)
[2019-04-19] MEDS ORDERED: PROPOFOL 200 MG/20 ML VIAL IV ONE (14:18)
[2019-04-19] MEDS ORDERED: dexAMETHasone 20 MG/5 ML VIAL ONE (15:36)
[2019-04-19] MEDS ORDERED: ONDANSETRON 4 MG/2 ML INJ ONE (15:36)
[2019-04-19] MEDS ORDERED: ROCURONIUM 50 MG/5 ML INJ IV ONE (15:41)
[2019-04-19] MEDS ORDERED: MINERAL OIL 30 ML ORAL LIQD ONE (15:45)
[2019-04-19] MEDS ORDERED: PHENYLEPHRINE/NS 1,000 MCG/10 ML SYRINGE (OR USE) IV ONE (15:57)
--- NOTE | 2019-04-19 17:31 | Post Operative Note ---
Pre-op diagnosis: Left renal stones Post-op diagnosis: same Findings: left lower pole stones / frags antegraged pyelogram, limited commnunication Procedure: percutaneous nephrostomy tract dilation percutaneous flexible nephroscopy Anesthesia: ANABEL Surgeon: JACEY SOSA Estimated blood loss: minimal Pathology: none Condition: stable Disposition: PACU
--- NOTE | 2019-04-19 18:03 | Fluoroscopy Report ---
Left nephrostogram INDICATION: Kidney stone, percutaneous nephrolithotomy FINDINGS: 13 images obtained from C-arm exam show a left ureteral stent in place with multiple calcul i in the left mid and lower poles. A second ureteral stent is in place as well. There is eventual rem oval of one of the ureteral stents over a guidewire and placement of fascial dilating balloon was sub sequently placement of a drainage catheter. Total fluoroscopic time was 5.9 minutes. Signer Name: Jonathon Musa MD Signed: 04/19/2019 5:59 PM Workstation Name: [id number]
[2019-04-19 19:24] LABS: Basophils % (Auto) 0.2 % (0.0-1.8); Eosinophils # (Auto) 0.1 K/mm3 (0.0-0.4); Eosinophils % (Auto) 1.3 % (0.0-4.3); Hematocrit 39.2 % (30.3-42.9); Hemoglobin 13.3 gm/dl (10.1-14.3); Lymphocytes # (Auto) 0.6 K/mm3 (1.2-5.4); Lymphocytes % (Auto) 14.6 % (13.4-35.0); Mean Corpuscular HGB Conc 34 % (30-34); Mean Corpuscular Volume 96 fl (79-97); Monocytes # (Auto) 0.2 K/mm3 (0.0-0.8); Red Blood Count 4.09 M/mm3 (3.65-5.03); Red Cell Distribution Width 14.1 % (13.2-15.2)
[2019-04-19 19:26] LABS: Platelet Count 89 K/mm3 (140-440)
[2019-04-19 19:43] LABS: BUN/Creatinine Ratio 16; Blood Urea Nitrogen 8 mg/dL (7-17); Calcium 8.6 mg/dL (8.4-10.2); Hemolysis Index 67
--- NOTE | 2019-04-19 19:56 | XRay Report ---
CHEST 1 VIEW INDICATION: post percutaneous nephrolithotomy. COMPARISON: None FINDINGS: Support devices: None. Heart: Within normal limits. Lungs/Pleura: Mild interstitial edema is present with medial right apical airspace opacity. Additional findings: None. IMPRESSION: 1. Pulmonary findings as above. Signer Name: Cristiano Stout MD Signed: 04/19/2019 7:52 PM Workstation Name: [id number]
[2019-04-19] MEDS: traZODone 100 MG TAB PO SCH (22:08)
[2019-04-19 22:20] LABS: BUN/Creatinine Ratio 17; Blood Urea Nitrogen 10 mg/dL (7-17); Calcium 8.7 mg/dL (8.4-10.2); Hemolysis Index 14
[2019-04-19] MEDS: HALOPERIDOL 2 MG TAB PO SCH (22:22)
[2019-04-19 22:40] LABS: Basophils % (Auto) 0.2 % (0.0-1.8); Eosinophils % (Auto) 0.2 % (0.0-4.3); Hematocrit 36.4 % (30.3-42.9); Hemoglobin 12.8 gm/dl (10.1-14.3); Lymphocytes # (Auto) 0.4 K/mm3 (1.2-5.4); Lymphocytes % (Auto) 11.7 % (13.4-35.0); Mean Corpuscular HGB Conc 35 % (30-34); Mean Corpuscular Volume 94 fl (79-97); Monocytes # (Auto) 0.1 K/mm3 (0.0-0.8); Monocytes % (Auto) 2.2 % (0.0-7.3); Red Blood Count 3.86 M/mm3 (3.65-5.03); Red Cell Distribution Width 13.5 % (13.2-15.2)
[2019-04-19 22:42] LABS: Platelet Count 74 K/mm3 (140-440)
[2019-04-19] MEDS: OXYBUTYNIN 5 MG TAB PO SCH (23:09)
[2019-04-20] MEDS: MORPHINE 2 MG/1 ML INJ IV PRN (00:31)
[2019-04-20] MEDS ORDERED: GENTAMICIN 300 MG in SODIUM CHLORIDE 0.9% 100 ML IV SCH (06:00)
[2019-04-20] MEDS: oxyCODONE 5 MG TAB PO PRN ×3 (06:30→20:10)
[2019-04-20] MEDS: LACTATED RINGERS 1,000 ML IV SCH (06:45)
[2019-04-20 07:24] LABS: Hematocrit 35.7 % (30.3-42.9); Hemoglobin 12.5 gm/dl (10.1-14.3); Lymphocytes % (Auto) 13.2 % (13.4-35.0); Mean Corpuscular HGB Conc 35 % (30-34); Mean Corpuscular Volume 95 fl (79-97); Red Blood Count 3.75 M/mm3 (3.65-5.03); Red Cell Distribution Width 13.6 % (13.2-15.2)
[2019-04-20 07:25] LABS: Basophils % (Auto) 0.3 % (0.0-1.8); Eosinophils % (Auto) 0.1 % (0.0-4.3); Lymphocytes # (Auto) 0.5 K/mm3 (1.2-5.4); Monocytes # (Auto) 0.3 K/mm3 (0.0-0.8); Monocytes % (Auto) 7.9 % (0.0-7.3); Platelet Count 80 K/mm3 (140-440)
[2019-04-20 07:49] LABS: BUN/Creatinine Ratio 18; Blood Urea Nitrogen 9 mg/dL (7-17); Calcium 8.8 mg/dL (8.4-10.2); Hemolysis Index 46
[2019-04-20] MEDS: METOPROLOL TARTRATE 100 MG TAB PO SCH (09:21)
[2019-04-20] MEDS: GABAPENTIN 300 MG CAP PO SCH ×3 (09:21→20:11)
[2019-04-20] MEDS: VENLAFAXINE 75 MG TAB PO SCH (09:22)
[2019-04-20] MEDS: LISINOPRIL 20 MG TAB PO SCH (09:22)
[2019-04-20] MEDS: OXYBUTYNIN 5 MG TAB PO SCH ×3 (09:22→20:11)
--- NOTE | 2019-04-20 13:43 | Progress Note ---
Assessment and Plan Okay to discharge patient home from an interventional radiology standpoint. Discharge will need to be held prior to urology clearance. Subjective Date of service: 04/20/19 Principal diagnosis: left renal calculi Interval history: Patient status post placement of percutaneous access on the left followed by left laser lithotripsy with Dr. Maldonado. Patient is doing well from an interventional radiology standpoint. Objective - Constitutional Vitals: Vital Signs - 12hr 04/20/19 04/20/19 04/20/19 01:57 04:27 04:28 Temperature 97.9 F Pulse Rate 85 85 Respiratory 16 17 Rate Blood Pressure 124/68 O2 Sat by Pulse 95 93 92 Oximetry 04/20/19 04/20/19 04/20/19 06:30 07:55 09:21 Temperature 98.4 F Pulse Rate 76 76 Respiratory 16 18 Rate Blood Pressure 124/66 124/66 O2 Sat by Pulse 93 Oximetry 04/20/19 04/20/19 09:22 11:28 Temperature 98.1 F Pulse Rate 66 Respiratory 18 Rate Blood Pressure 124/66 113/58 O2 Sat by Pulse 93 Oximetry General appearance: Present: no acute distress - EENT Eyes: EOM intact ENT: hearing intact - Neck Neck: supple, normal ROM - Respiratory Respiratory effort: normal - Breasts Breasts: deferred - Gastrointestinal General gastrointestinal: Present: deferred, other (left nephrostomy tube in place) Rectal Exam: deferred - Genitourinary Female genitourinary: deferred - Psychiatric Psychiatric: appropriate mood/affect, cooperative - Labs CBC & Chem 7: 04/20/19 06:59 04/20/19 06:59 Labs: Abnormal lab results 04/19/19 04/19/19 04/19/19 Range/Units 14:15 18:03 18:35 WBC 4.1 L (4.5-11.0) K/mm3 MCH 33 H (28-32) pg MCHC (30-34) % Plt Count 89 L (140-440) K/mm3 Lymph % (Auto) (13.4-35.0) % [place] % (Auto) (0.0-7.3) % Lymph # 0.6 L (1.2-5.4) K/mm3 Seg Neutrophils % 79.9 H (40.0-70.0) % Carbon Dioxide (22-30) mmol/L Creatinine (0.7-1.2) mg/dL Glucose (65-100) mg/dL POC Glucose 109 H 133 H (70-105) 04/19/19 04/19/19 04/19/19 Range/Units 18:35 21:42 21:42 WBC 3.5 L (4.5-11.0) K/mm3 MCH 33 H (28-32) pg MCHC 35 H (30-34) % Plt Count 74 L (140-440) K/mm3 Lymph % (Auto) 11.7 L (13.4-35.0) % [place] % (Auto) (0.0-7.3) % Lymph # 0.4 L (1.2-5.4) K/mm3 Seg Neutrophils % 85.7 H (40.0-70.0) % Carbon Dioxide 21 L (22-30) mmol/L Creatinine 0.5 L 0.6 L (0.7-1.2) mg/dL Glucose 135 H 183 H (65-100) mg/dL POC Glucose (70-105) 04/19/19 04/20/19 04/20/19 Range/Units 22:05 06:59 06:59 WBC 3.4 L (4.5-11.0) K/mm3 MCH 33 H (28-32) pg MCHC 35 H (30-34) % Plt Count 80 L (140-440) K/mm3 Lymph % (Auto) 13.2 L (13.4-35.0) % [place] % (Auto) 7.9 H (0.0-7.3) % Lymph # 0.5 L (1.2-5.4) K/mm3 Seg Neutrophils % 78.5 H (40.0-70.0) % Carbon Dioxide (22-30) mmol/L Creatinine 0.5 L (0.7-1.2) mg/dL Glucose 164 H (65-100) mg/dL POC Glucose 179 H (70-105) 04/20/19 04/20/19 Range/Units 08:05 11:38 WBC (4.5-11.0) K/mm3 MCH (28-32) pg MCHC (30-34) % Plt Count (140-440) K/mm3 Lymph % (Auto) (13.4-35.0) % [place] % (Auto) (0.0-7.3) % Lymph # (1.2-5.4) K/mm3 Seg Neutrophils % (40.0-70.0) % Carbon Dioxide (22-30) mmol/L Creatinine (0.7-1.2) mg/dL Glucose (65-100) mg/dL POC Glucose 158 H 155 H (70-105) Medications & Allergies - Medications Allergies/Adverse Reactions: Allergies No Known Allergies Allergy (Unverified 01/04/19 17:29) Home Medications: Home Medications Medication Instructions Recorded Confirmed Last Taken Type Lisinopril [Zestril TAB] 20 mg PO DAILY 01/05/19 04/17/19 04/17/19 04:30 History 20 mg Gabapentin 300 mg PO TID 02/20/19 04/17/19 04/17/19 04:30 History 300 mg Haloperidol [Haldol] 2 mg PO HS 02/20/19 04/17/19 04/16/19 History 2 mg Metformin HCl [metFORMIN] 1,000 mg PO DAILY 02/20/19 04/17/19 04/16/19 History 1000 mg Metoprolol [Lopressor TAB] 200 mg PO BID 02/20/19 04/17/19 04/17/19 04:30 History 200 mg Venlafaxine HCl [Venlafaxine HCl 150 mg PO DAILY 02/20/19 04/17/19 04/17/19 04:30 History ER] 150 mg traZODone [Desyrel] 100 mg PO HS 02/20/19 04/17/19 04/16/19 History 100 mg cefUROXime [Ceftin] 500 mg PO BID 04/17/19 04/17/19 04/17/19 History 500 mg oxyCODONE [roxiCODONE] 5 mg PO Q6HR PRN #20 tablet 04/20/19 Unknown Rx Active Medications: Generic Name Dose Route Start Last Admin Trade Name Freq PRN Reason Stop Dose Admin Acetaminophen 650 mg 04/17/19 11:30 Tylenol PO Q4H PRN Pain MILD(1-3)/Fever >100.5/RUDOLPH Albuterol 2.5 mg 04/17/19 11:18 Proventil IH Q4HRT PRN Shortness Of Breath Gabapentin 300 mg 04/17/19 14:00 04/20/19 09:21 Gabapentin PO 300 mg TID KIMBERLEY Administration Haloperidol 2 mg 04/17/19 22:00 04/19/19 22:22 Haldol PO Not Given HS KIMBERLEY Levofloxacin/Dextrose 750 mg in 150 mls @ 100 mls/hr 04/17/19 14:00 04/20/19 09:23 Levaquin 750mg/150ml IV 04/21/19 11:29 100 mls/hr Q24HR KIMBERLEY Administration Protocol Dextrose/Sodium Chloride 1,000 mls @ 42 mls/hr 04/18/19 06:00 04/18/19 12:10 D5ns IV 42 mls/hr DIRECT KIMBERLEY Administration Lactated Ringer's 1,000 mls @ 100 mls/hr 04/18/19 15:00 04/20/19 06:45 Lactated Ringers IV 100 mls/hr DIRECT KIMBERLEY Administration Gentamicin Sulfate 300 mg/ 107.5 mls @ 200 mls/hr 04/20/19 06:00 Sodium Chloride IV 04/23/19 07:59 Q24H [facility] Lisinopril 20 mg 04/18/19 10:00 04/20/19 09:22 Zestril PO 20 mg DAILY KIMBERLEY Administration Metoprolol Tartrate 200 mg 04/17/19 22:00 04/20/19 09:21 Metoprolol PO 200 mg BID KIMBERLEY Administration Morphine Sulfate 2 mg 04/17/19 11:30 04/20/19 00:31 Morphine IV 2 mg Q4H PRN Administration Pain, Moderate (4-6) Ondansetron HCl 4 mg 04/17/19 11:30 04/17/19 22:50 Zofran IV 4 mg Q8H PRN Administration Nausea And Vomiting Oxybutynin Chloride 5 mg 04/19/19 23:00 04/20/19 09:22 Ditropan PO 5 mg TID KIMBERLEY Administration Oxycodone HCl 5 mg 04/17/19 12:05 04/20/19 06:30 Roxicodone PO 5 mg Q6H PRN Administration Pain, Moderate (4-6) Sodium Chloride 10 ml 04/17/19 22:00 04/20/19 09:23 Sodium Chloride Flush Syringe 10 Ml IV 10 ml BID KIMBERLEY Administration Sodium Chloride 10 ml 04/17/19 11:30 04/18/19 08:29 Sodium Chloride Flush Syringe 10 Ml IV 10 ml PRN PRN Administration LINE FLUSH Trazodone HCl 100 mg 04/17/19 22:00 04/19/19 22:08 Desyrel PO 100 mg HS KIMBERLEY Administration Venlafaxine HCl 150 mg 04/18/19 10:00 04/20/19 09:22 Effexor PO 150 mg DAILY KIMBERLEY Administration
--- NOTE | 2019-04-20 15:31 | XRay Report ---
CHEST 1 VIEW INDICATION: pulm edema. COMPARISON: 04/19/2019 FINDINGS: Support devices: None. Heart: Within normal limits. Lungs/Pleura: No acute air space or interstitial disease. Mild pulmonary edema has resolved since the previous exam. The lungs are generally clear. Additional findings: Left shoulder replacement. IMPRESSION: Unremarkable AP chest. Signer Name: Angel Shepard Jr, MD Signed: 04/20/2019 3:27 PM Workstation Name: [id number]
--- NOTE | 2019-04-20 18:33 | Progress Note ---
Assessment and Plan Assessment and plan: Patient is 63 yo with hypertension, diabetes, cirrhosis, kidney stones. She had lithotripsy attempted few weeks ago but states still has some stones present. She presented to Dr. Sigala, had procedure done in OR today. She had percutanous nephroureteral tube placement left kidney and is being admitted for further management and further procedure (PCNL) to be done tomorrow by Dr. Maldonado, Urologist. Currently complains of pain left flank. No fever. * 04/19/19- Patient status post placement of percutaneous access on the left followed by left laser lithotripsy with Dr. Maldonado. - Left renal stone guided s/p Fluoroscopic inspection of left nephrostomy tube - 04/17/19 - UTI Follow urine culture Continue with Levaquin - Hypertension Resume home meds - Diabetes mellitus type 2 sliding scale insulin Fingerstick qac and hs Consistent, carbohydrates diet when patient, his oral intake - History of cirrhosis Stable Obesity counseled her on diet and exercise Full code status medically stable for discharge once cleared by Urology. History Interval history: Patient seen and examined, ambulatory, wants to go home, no new complaints. Hospitalist Physical - Physical exam Narrative exam: VITAL SIGNS: Reviewed. GENERAL: The patient appears normally developed, Vital signs as documented. HEAD: No signs of head trauma. EYES: Pupils are equal. Extraocular motions intact. EARS: Hearing grossly intact. MOUTH: Oropharynx is normal. NECK: No adenopathy, no JVD. CHEST: Chest with clear breath sounds bilaterally. No wheezes, rales, or rhonchi. CARDIAC: Regular rate and rhythm. S1 and S2, without murmurs, gallops, or rubs. VASCULAR: No Edema. Peripheral pulses normal and equal in all extremities. ABDOMEN: Soft, non tender and non distended. No rebound or guarding, and no masses palpated. Bowel Sounds normal. : Percutaneous Nephrostomy tube in place MUSCULOSKELETAL: Good range of motion of all major joints. Extremities without clubbing, cyanosis or edema. NEUROLOGIC EXAM: Alert and oriented x 3 No focal sensory or strength deficits. Speech normal. Follows commands. PSYCHIATRIC: Mood normal. SKIN: detail exam as documented in skin assessment - Constitutional Vitals: Temp Pulse Resp BP Pulse Ox 98.0 F 68 18 136/62 92 04/20/19 16:07 04/20/19 16:07 04/20/19 16:07 04/20/19 16:07 04/20/19 16:07 General appearance: Present: no acute distress Results - Labs CBC & Chem 7: 04/20/19 06:59 04/20/19 06:59 Labs: Laboratory Last Values WBC 3.4 K/mm3 (4.5-11.0) L 04/20/19 06:59 RBC 3.75 M/mm3 (3.65-5.03) 04/20/19 06:59 Hgb 12.5 gm/dl (10.1-14.3) 04/20/19 06:59 Hct 35.7 % (30.3-42.9) 04/20/19 06:59 MCV 95 fl (79-97) 04/20/19 06:59 MCH 33 pg (28-32) H 04/20/19 06:59 MCHC 35 % (30-34) H 04/20/19 06:59 RDW 13.6 % (13.2-15.2) 04/20/19 06:59 Plt Count 80 K/mm3 (140-440) L 04/20/19 06:59 Lymph % (Auto) 13.2 % (13.4-35.0) L 04/20/19 06:59 [place] % (Auto) 7.9 % (0.0-7.3) H 04/20/19 06:59 Eos % (Auto) 0.1 % (0.0-4.3) 04/20/19 06:59 Baso % (Auto) 0.3 % (0.0-1.8) 04/20/19 06:59 Lymph # 0.5 K/mm3 (1.2-5.4) L 04/20/19 06:59 [place] # 0.3 K/mm3 (0.0-0.8) 04/20/19 06:59 Eos # 0.0 K/mm3 (0.0-0.4) 04/20/19 06:59 Baso # 0.0 K/mm3 (0.0-0.1) 04/20/19 06:59 Seg Neutrophils % 78.5 % (40.0-70.0) H 04/20/19 06:59 Seg Neutrophils # 2.7 K/mm3 (1.8-7.7) 04/20/19 06:59 PT 13.9 Sec. (12.2-14.9) 04/17/19 14:02 INR 1.08 (0.87-1.13) 04/17/19 14:02 APTT 35.1 Sec. (24.2-36.6) 04/19/19 04:12 Sodium 138 mmol/L (137-145) 04/20/19 06:59 Potassium 4.1 mmol/L (3.6-5.0) 04/20/19 06:59 Chloride 103.9 mmol/L (98-107) 04/20/19 06:59 Carbon Dioxide 22 mmol/L (22-30) 04/20/19 06:59 Anion Gap 16 mmol/L 04/20/19 06:59 BUN 9 mg/dL (7-17) 04/20/19 06:59 Creatinine 0.5 mg/dL (0.7-1.2) L 04/20/19 06:59 Estimated GFR > 60 ml/min 04/20/19 06:59 BUN/Creatinine Ratio 18 % 04/20/19 06:59 Glucose 164 mg/dL (65-100) H 04/20/19 06:59 POC Glucose 77 (70-105) 04/20/19 16:43 Calcium 8.8 mg/dL (8.4-10.2) 04/20/19 06:59 Total Bilirubin 1.00 mg/dL (0.1-1.2) 04/19/19 04:12 AST 29 units/L (5-40) 04/19/19 04:12 ALT 9 units/L (7-56) 04/19/19 04:12 Alkaline Phosphatase 79 units/L (35-129) 04/19/19 04:12 Total Protein 6.8 g/dL (6.3-8.2) 04/19/19 04:12 Albumin 3.6 g/dL (3.9-5) L 04/19/19 04:12 Albumin/Globulin Ratio 1.1 % 04/19/19 04:12 Urine Color Yellow (Yellow) 04/17/19 19:39 Urine Turbidity Cloudy (Clear) 04/17/19 19:39 Urine pH 6.0 (5.0-7.0) 04/17/19 19:39 Ur Specific [place] 1.004 (1.003-1.030) 04/17/19 19:39 Urine Protein 100 mg/dl mg/dL (Negative) 04/17/19 19:39 Urine Glucose (UA) Neg mg/dL (Negative) 04/17/19 19:39 Urine Ketones Neg mg/dL (Negative) 12 19:39 Urine Blood Lg (Negative) 04/17/19 19:39 Urine Nitrite Neg (Negative) 04/17/19 19:39 Urine Bilirubin Neg (Negative) 04/17/19 19:39 Urine Urobilinogen < 2.0 mg/dL (<2.0) 12 19:39 Ur Leukocyte Esterase Lg (Negative) 04/17/19 19:39 Urine WBC (Auto) > 182.0 /HPF (0.0-6.0) H 12 19:39 Urine RBC (Auto) 59.0 /HPF (0.0-6.0) 04/17/19 19:39 U Epithel Cells (Auto) < 1.0 /HPF (0-13.0) 04/17/19 19:39 Urine Bacteria (Auto) 3+ /HPF (Negative) 04/17/19 19:39 Blood Type O POSITIVE 04/17/19 14:02 Antibody Screen Negative 04/17/19 14:02 Active Medications - Current Medications Current Medications: Generic Name Dose Route Start Last Admin Trade Name Freq PRN Reason Stop Dose Admin Acetaminophen 650 mg 04/17/19 11:30 Tylenol PO Q4H PRN Pain MILD(1-3)/Fever >100.5/RUDOLPH Albuterol 2.5 mg 04/17/19 11:18 Proventil IH Q4HRT PRN Shortness Of Breath Gabapentin 300 mg 04/17/19 14:00 04/20/19 14:44 Gabapentin PO 300 mg TID KIMBERLEY Administration Haloperidol 2 mg 04/17/19 22:00 04/19/19 22:22 Haldol PO Not Given HS KIMBERLEY Levofloxacin/Dextrose 750 mg in 150 mls @ 100 mls/hr 04/17/19 14:00 04/20/19 09:23 Levaquin 750mg/150ml IV 04/21/19 11:29 100 mls/hr Q24HR KIMBERLEY Administration Protocol Dextrose/Sodium Chloride 1,000 mls @ 42 mls/hr 04/18/19 06:00 04/18/19 12:10 D5ns IV 42 mls/hr DIRECT KIMBERLEY Administration Lactated Ringer's 1,000 mls @ 100 mls/hr 04/18/19 15:00 04/20/19 06:45 Lactated Ringers IV 100 mls/hr DIRECT KIMBERLEY Administration Gentamicin Sulfate 300 mg/ 107.5 mls @ 200 mls/hr 04/20/19 06:00 Sodium Chloride IV 04/23/19 07:59 Q24H KIMBERLEY Lisinopril 20 mg 04/18/19 10:00 04/20/19 09:22 Zestril PO 20 mg DAILY KIMBERLEY Administration Metoprolol Tartrate 200 mg 04/17/19 22:00 04/20/19 09:21 Metoprolol PO 200 mg BID KIMBERLEY Administration Morphine Sulfate 2 mg 04/17/19 11:30 04/20/19 00:31 Morphine IV 2 mg Q4H PRN Administration Pain, Moderate (4-6) Ondansetron HCl 4 mg 04/17/19 11:30 04/17/19 22:50 Zofran IV 4 mg Q8H PRN Administration Nausea And Vomiting Oxybutynin Chloride 5 mg 04/19/19 23:00 04/20/19 14:44 Ditropan PO 5 mg TID KIMBERLEY Administration Oxycodone HCl 5 mg 04/17/19 12:05 04/20/19 14:47 Roxicodone PO 5 mg Q6H PRN Administration Pain, Moderate (4-6) Sodium Chloride 10 ml 04/17/19 22:00 04/20/19 09:23 Sodium Chloride Flush Syringe 10 Ml IV 10 ml BID KIMBERLEY Administration Sodium Chloride 10 ml 04/17/19 11:30 04/18/19 08:29 Sodium Chloride Flush Syringe 10 Ml IV 10 ml PRN PRN Administration LINE FLUSH Trazodone HCl 100 mg 04/17/19 22:00 04/19/19 22:08 Desyrel PO 100 mg HS KIMBERLEY Administration Venlafaxine HCl 150 mg 04/18/19 10:00 04/20/19 09:22 Effexor PO 150 mg DAILY KIMBERLEY Administration
[2019-04-20 20:04] VITALS: BP 121/57
--- NOTE | 2019-04-20 21:04 | Progress Note ---
Assessment and Plan ok to discharge if ok w/ Hospitalist wire removed flushed neph tube instructed do not take oxycodone or hydrocodone within 12 hours of each other Subjective Date of service: 04/20/19 Principal diagnosis: left renal calculi Objective - Constitutional Vitals: Vital Signs - 12hr 04/20/19 04/20/19 04/20/19 09:21 09:22 11:28 Temperature 98.1 F Pulse Rate 76 66 Respiratory 18 Rate Blood Pressure 124/66 124/66 113/58 O2 Sat by Pulse 93 Oximetry 04/20/19 04/20/19 16:07 20:02 Temperature 98.0 F 97.4 F L Pulse Rate 68 62 Respiratory 18 20 Rate Blood Pressure 136/62 121/57 O2 Sat by Pulse 92 96 Oximetry - Labs CBC & Chem 7: 04/20/19 06:59 04/20/19 06:59 Labs: Abnormal lab results 04/19/19 04/19/19 04/19/19 Range/Units 21:42 21:42 22:05 WBC 3.5 L (4.5-11.0) K/mm3 MCH 33 H (28-32) pg MCHC 35 H (30-34) % Plt Count 74 L (140-440) K/mm3 Lymph % (Auto) 11.7 L (13.4-35.0) % [place] % (Auto) (0.0-7.3) % Lymph # 0.4 L (1.2-5.4) K/mm3 Seg Neutrophils % 85.7 H (40.0-70.0) % Creatinine 0.6 L (0.7-1.2) mg/dL Glucose 183 H (65-100) mg/dL POC Glucose 179 H (70-105) 04/20/19 04/20/19 04/20/19 Range/Units 06:59 06:59 08:05 WBC 3.4 L (4.5-11.0) K/mm3 MCH 33 H (28-32) pg MCHC 35 H (30-34) % Plt Count 80 L (140-440) K/mm3 Lymph % (Auto) 13.2 L (13.4-35.0) % [place] % (Auto) 7.9 H (0.0-7.3) % Lymph # 0.5 L (1.2-5.4) K/mm3 Seg Neutrophils % 78.5 H (40.0-70.0) % Creatinine 0.5 L (0.7-1.2) mg/dL Glucose 164 H (65-100) mg/dL POC Glucose 158 H (70-105) 04/20/19 Range/Units 11:38 WBC (4.5-11.0) K/mm3 MCH (28-32) pg MCHC (30-34) % Plt Count (140-440) K/mm3 Lymph % (Auto) (13.4-35.0) % [place] % (Auto) (0.0-7.3) % Lymph # (1.2-5.4) K/mm3 Seg Neutrophils % (40.0-70.0) % Creatinine (0.7-1.2) mg/dL Glucose (65-100) mg/dL POC Glucose 155 H (70-105) Medications & Allergies - Medications Allergies/Adverse Reactions: Allergies No Known Allergies Allergy (Unverified 01/04/19 17:29) Home Medications: Home Medications Medication Instructions Recorded Confirmed Last Taken Type Lisinopril [Zestril TAB] 20 mg PO DAILY 01/05/19 04/17/19 04/17/19 04:30 History 20 mg Gabapentin 300 mg PO TID 02/20/19 04/17/19 04/17/19 04:30 History 300 mg Haloperidol [Haldol] 2 mg PO HS 02/20/19 04/17/19 04/16/19 History 2 mg Metformin HCl [metFORMIN] 1,000 mg PO DAILY 02/20/19 04/17/19 04/16/19 History 1000 mg Metoprolol [Lopressor TAB] 200 mg PO BID 02/20/19 04/17/19 04/17/19 04:30 History 200 mg Venlafaxine HCl [Venlafaxine HCl 150 mg PO DAILY 02/20/19 04/17/19 04/17/19 04:30 History ER] 150 mg traZODone [Desyrel] 100 mg PO HS 02/20/19 04/17/19 04/16/19 History 100 mg cefUROXime [Ceftin] 500 mg PO BID 04/17/19 04/17/19 04/17/19 History 500 mg HYDROcodone/APAP 10-325 [[place] 0.5 - 1 each PO Q6HR PRN #30 tablet 04/20/19 Unknown Rx 10-325 mg TAB] Oxybutynin [Ditropan] 5 mg PO TID PRN #30 tab 04/20/19 Unknown Rx oxyCODONE [roxiCODONE] 5 mg PO Q6HR PRN #20 tablet 04/20/19 Unknown Rx Active Medications: Generic Name Dose Route Start Last Admin Trade Name Freq PRN Reason Stop Dose Admin Acetaminophen 650 mg 04/17/19 11:30 Tylenol PO Q4H PRN Pain MILD(1-3)/Fever >100.5/RUDOLPH Albuterol 2.5 mg 04/17/19 11:18 Proventil IH Q4HRT PRN Shortness Of Breath Gabapentin 300 mg 04/17/19 14:00 04/20/19 20:11 Gabapentin PO 300 mg TID KIMBERLEY Administration Haloperidol 2 mg 04/17/19 22:00 04/19/19 22:22 Haldol PO Not Given HS KIMBERLEY Levofloxacin/Dextrose 750 mg in 150 mls @ 100 mls/hr 04/17/19 14:00 04/20/19 20:17 Levaquin 750mg/150ml IV 04/21/19 11:29 Infused Q24HR KIMBERLEY Infusion Protocol Dextrose/Sodium Chloride 1,000 mls @ 42 mls/hr 04/18/19 06:00 04/18/19 12:10 D5ns IV 42 mls/hr DIRECT KIMBERLEY Administration Lactated Ringer's 1,000 mls @ 100 mls/hr 04/18/19 15:00 04/20/19 20:18 Lactated Ringers IV Infused DIRECT KIMBERLEY Infusion Gentamicin Sulfate 300 mg/ 107.5 mls @ 200 mls/hr 04/20/19 06:00 Sodium Chloride IV 04/23/19 07:59 Q24H KIMBERLEY Lisinopril 20 mg 04/18/19 10:00 04/20/19 09:22 Zestril PO 20 mg DAILY KIMBERLEY Administration Metoprolol Tartrate 200 mg 04/17/19 22:00 04/20/19 09:21 Metoprolol PO 200 mg BID KIMBERLEY Administration Morphine Sulfate 2 mg 04/17/19 11:30 04/20/19 00:31 Morphine IV 2 mg Q4H PRN Administration Pain, Moderate (4-6) Ondansetron HCl 4 mg 12/09/19 11:30 04/17/19 22:50 Zofran IV 4 mg Q8H PRN Administration Nausea And Vomiting Oxybutynin Chloride 5 mg 04/19/19 23:00 04/20/19 20:11 Ditropan PO 5 mg TID KIMBERLEY Administration Oxycodone HCl 5 mg 04/17/19 12:05 04/20/19 20:10 Roxicodone PO 5 mg Q6H PRN Administration Pain, Moderate (4-6) Sodium Chloride 10 ml 04/17/19 22:00 04/20/19 09:23 Sodium Chloride Flush Syringe 10 Ml IV 10 ml BID KIMBERLEY Administration Sodium Chloride 10 ml 04/17/19 11:30 04/18/19 08:29 Sodium Chloride Flush Syringe 10 Ml IV 10 ml PRN PRN Administration LINE FLUSH Trazodone HCl 100 mg 04/17/19 22:00 04/19/19 22:08 Desyrel PO 100 mg HS KIMBERLEY Administration Venlafaxine HCl 150 mg 04/18/19 10:00 04/20/19 09:22 Effexor PO 150 mg DAILY KIMBERLEY Administration
--- NOTE | 2019-04-26 08:46 | Fluoroscopy Report ---
2 fluoroscopic images submitted Indication: Intraoperative localization Impression: 2 images of the left flank were submitted for documentation purposes with radiology invo lvement. Approximately 20 mL of Omnipaque 300 was utilized for this exam. Please refer to the operat elise note for complete details. Fluoroscopic time: 6 seconds Signer Name: Cristiano Stout MD Signed: 04/26/2019 8:42 AM Workstation Name: [id number]
== END 2019-04-20 09:50 | disposition home or self-care (01) | DRG 694 ==
LOC: CATHLABREC 06:19 → 3B-SURG 11:18 → OBSVTOIN 04-19 10:25
PROVIDERS: ADMIT Internal Medicine; ATTEND Radiology Diagnostic Radiology
PROC: 0T9430Z Drainage of Left Kidney Pelvis with Drainage Device, Percutaneous Approach (ICD-10-PCS; principal; 2019-04-17)
PROC: BT121ZZ Fluoroscopy of Left Kidney using Low Osmolar Contrast (ICD-10-PCS; 2019-04-17)
PROC: 0T9130Z Drainage of Left Kidney with Drainage Device, Percutaneous Approach (ICD-10-PCS; 2019-04-19)
PROC: 0TJ53ZZ Inspection of Kidney, Percutaneous Approach (ICD-10-PCS; 2019-04-19)
DX: N20.0 Calculus of kidney (principal); N39.0 Urinary tract infection, site not specified; E11.9 Type 2 diabetes mellitus without complications; K74.60 Unspecified cirrhosis of liver; I10 Essential (primary) hypertension; E66.9 Obesity, unspecified; Z87.891 Personal history of nicotine dependence; Z68.37 Body mass index [BMI] 37.0-37.9, adult; Z71.3 Dietary counseling and surveillance; Z90.710 Acquired absence of both cervix and uterus; Z82.49 Family history of ischemic heart disease and other diseases of the circulatory system; Z83.3 Family history of diabetes mellitus; Z79.899 Other long term (current) drug therapy
CPT/HCPCS: 36415; 50433; 71045; 74018; 74176; 80048; 80053; 81001; 82962; 85025; 85610; 85730; 86850; 86900; 86901; 87086; G0378; C1726; C1751; C1769; J0690; J1100; J1580; J1644; J1956; J2250; J2270; J2370; J2405; J2704; J3010; J7040; J7042; J7050; J7120; Q9967